=== PATIENT | female | born 1975 | race Caucasian/White ===

== ENCOUNTER → 2022-10-22 | Outpatient (CLI) | payer MEDICARE ==
[~2022-10-22] MED LIST: ESTRADIOL1 MG PO; LEVOTHYROXINE112 MCG PO; LORAZEPAM1 MG PO; NORCO 10-325 T1 EACH PEG; TRICOR145 MG PO
== END ==
LOC: US 10:12
PROVIDERS: ATTEND Internal Medicine Endocrinology, Diabetes & Metabolism
DX: C73 Malignant neoplasm of thyroid gland (principal); E04.2 Nontoxic multinodular goiter; E78.2 Mixed hyperlipidemia
CPT/HCPCS: 76536